=== PATIENT | female | born 1960 | race African-American/Black ===

== ENCOUNTER 2018-05-31 07:59 | Inpatient (IN) ==
[2018-05-31] MEDS ORDERED: D5 LR 1000 ML 1,000 ML IV ONE (08:02)
[2018-05-31] MEDS ORDERED: ANCEF 1 GRAM IV PREMIX* 1 G/50 ML BAG IV ONE (08:03)
[2018-05-31 08:36] VITALS: BMI 49.1
[2018-05-31] MEDS ORDERED: ROBINUL ONE (09:26)
[2018-05-31] MEDS ORDERED: NEOSTIGMINE INJ ONE (09:26)
[2018-05-31] MEDS ORDERED: NS IRRIGATION 3000 ML ONE (09:26)
[2018-05-31] MEDS ORDERED: QUELICIN (OR ANECTINE) ONE (09:26)
[2018-05-31] MEDS ORDERED: NS IRRIGATION 1000 ML ONE (09:26)
[2018-05-31] MEDS ORDERED: ZOFRAN INJ 4 MG VIAL ONE (09:26)
[2018-05-31] MEDS ORDERED: DIPRIVAN VIAL ONE (09:26)
[2018-05-31] MEDS ORDERED: VERSED ONE (09:26)
[2018-05-31] MEDS ORDERED: NORCURON INJ 10 MG VIAL ONE ×2 (09:26→12:24)
[2018-05-31] MEDS ORDERED: XYLOCAINE 2 % (PLAIN) ONE (09:26)
[2018-05-31] MEDS ORDERED: BACTROBAN TOPICAL OINT ONE (09:31)
[2018-05-31] MEDS ORDERED: FENTANYL INJ 250 mcg ONE (09:41)
[2018-05-31] MEDS ORDERED: LR 1000 ML IV 1,000 ML IV ONE (10:02)
[2018-05-31] MEDS ORDERED: FENTANYL INJ 100 mcg ONE ×2 (10:51→11:20)
[2018-05-31] MEDS ORDERED: DILAUDID INJ ONE ×2 (10:51→17:04)
[2018-05-31] MEDS ORDERED: NS 1000 ML 1,000 ML ONE ×2 (11:23→15:55)
[2018-05-31] MEDS ORDERED: NS IRRIGATION 1000 ML 1,000 ML with BACITRACIN VIAL 50,000 UNIT, POLYMYXIN B SULFATE 50... IR NR ×3 (13:00)
[2018-05-31] MEDS ORDERED: NS IRRIGATION 3000 ML 3,000 ML with BACITRACIN VIAL 50,000 UNIT, POLYMYXIN B SULFATE 50... IR NR ×6 (13:00)
[2018-05-31] MEDS ORDERED: PHENERGAN INJ 25 MG IVP PRN (14:04)
[2018-05-31] MEDS ORDERED: ZOFRAN INJ 4 MG VIAL IVP PRN (14:04)
[2018-05-31] MEDS ORDERED: REGLAN INJ 10 MG VIAL IVP PRN (14:04)
[2018-05-31] MEDS ORDERED: BENADRYL INJ 50 MG VIAL IVP PRN (14:04)
[2018-05-31] MEDS ORDERED: DILAUDID INJ IVP PRN (14:04)
[2018-05-31] MEDS ORDERED: MORPHINE SULFATE PCA 30 MG IV PRN (14:23)
--- NOTE | 2018-05-31 14:56 | RAD ---
Examination: Portable right hip, two views History: Postop Comparison reference 04/01/2018 Findings: Arthroplasty components are now present, related anatomically without evidence for displace ment or periprosthetic fracture. The expected postsurgical soft tissue changes are observed. Impression: Interval performance right PRIYANK. Reported By:
[2018-05-31] MEDS: DILAUDID INJ IVP PRN ×2 (17:21→21:27)
--- NOTE | 2018-05-31 18:53 | RAD ---
[facility] CLINICAL HISTORY: 58-year-old female postop right hip arthroplasty. COMPARISON: Radiographs of the right hip this date. FINDINGS: AP view of the pelvis was obtained. Study is limited secondary to patient body habitus and excessive quantum mottle. Right total hip arthroplasty with femoral and acetabular components well-se ated incongruent. No radiographic evidence of immediate postoperative complication. No osseous fractu re or malalignment. IMPRESSION: No immediate postoperative complication radiographically evident. Reported By:
[2018-05-31] MEDS: NORCO 5/325 MG TAB PO PRN (19:46)
[2018-05-31] MEDS: LOVENOX INJ 30 MG SYR SC SCH (21:25)
[2018-05-31] MEDS: LR 1000 ML IV 1,000 ML IV SCH (21:49)
[2018-06-01] MEDS: DILAUDID INJ IVP PRN ×3 (01:34→08:09)
[2018-06-01 04:51] LABS: BASOPHILS # (AUTO) 0.1 X10^3/uL (0.0-0.1); BASOPHILS % (AUTO) 0.5 % (0.2-1.0); EOSINOPHILS % (AUTO) 0.3 % (0.9-2.9); HEMATOCRIT 32.4 % (36.0-47.0); LYMPHOCYTES % (AUTO) 21.4 % (21.0-51.0); MEAN CORPUSCULAR HEMOGLOBIN 28.1 pg (27.0-34.0); MEAN CORPUSCULAR HGB CONC 34.1 g/dL (33.0-35.0); MEAN CORPUSCULAR VOLUME 82.6 fL (80.0-100.0); MONOCYTES # (AUTO) 1.6 x10^3/uL (0.3-0.8); MONOCYTES % (AUTO) 11.2 % (0.0-13.0); NEUTROPHILS # (AUTO) 9.4 x10^3/uL (2.2-4.8); NEUTROPHILS % (AUTO) 66.6 % (42.0-75.0); PLATELET COUNT 200 X10^3/uL (150.0-450.0); RED BLOOD COUNT 3.93 X10^6/uL (3.5-5.4); RED CELL DISTRIBUTION WIDTH 15.3 % (11.6-16.5); WHITE BLOOD COUNT 14.1 X10^3/uL (3.6-10.0)
[2018-06-01 04:57] LABS: BLOOD UREA NITROGEN 10 mg/dL (7-18); CALCIUM 8.3 mg/dL (8.5-10.1); CARBON DIOXIDE 32.6 mmol/L (21-32); CHLORIDE 100 mmol/L (98-107); COR NA(FOR HYPERGLY) 136 mmol/L (136-145); CREATININE 0.74 mg/dL (0.55-1.02); SODIUM 135 mmol/L (136-145); eGFR NON BLACK RACES > 60 (>60)
[2018-06-01] MEDS: LR 1000 ML IV 1,000 ML IV SCH ×3 (07:08→21:44)
[2018-06-01] MEDS: NORCO 5/325 MG TAB PO PRN (07:08)
[2018-06-01] MEDS ORDERED: MAALOX or MYLANTA PO PRN (07:42)
[2018-06-01] MEDS: LOVENOX INJ 30 MG SYR SC SCH ×2 (08:12→20:04)
[2018-06-01] MEDS ORDERED: TYLENOL 325 MG TAB PO PRN (08:36)
[2018-06-01] MEDS ORDERED: DILAUDID INJ IVP PRN (09:57)
[2018-06-01] MEDS ORDERED: PHARMACY CONSULT - DOSE _____ XX SCH (11:00)
[2018-06-01] MEDS ORDERED: DILAUDID PCA 60 MG IVP PRN (11:30)
[2018-06-01] MEDS: PERCOCET TAB 5/325 MG PO PRN ×2 (12:30→20:02)
[2018-06-01] MEDS ORDERED: MELOXICAM 7.5 MG PO SCH (13:00)
[2018-06-01] MEDS ORDERED: VALSARTAN HYDROCHLOROTHIAZIDE PO SCH (13:00)
[2018-06-01] MEDS ORDERED: STERILE WATER IRRIGATION IR ONE (13:18)
[2018-06-01] MEDS: MIRALAX POWDER (1 DOSE 17 G) PO SCH (14:28)
[2018-06-01] MEDS: ASPIRIN EC 81 MG PO SCH (14:29)
[2018-06-01] MEDS: CLARITIN PO SCH (14:29)
[2018-06-01] MEDS: MOBIC TAB 15 MG PO SCH (14:29)
[2018-06-01] MEDS: GLUCOPHAGE XR PO SCH (14:29)
[2018-06-01] MEDS: TENORMIN PO SCH ×2 (14:29→20:04)
[2018-06-01] MEDS: CYMBALTA PO SCH ×2 (14:29→21:44)
[2018-06-01] MEDS: PriLOSEC PO SCH (14:34)
[2018-06-01] MEDS: VICTOZA SC SCH (15:30)
[2018-06-01] MEDS: BENADRYL CAP/TAB 25 MG PO PRN ×2 (18:28→22:37)
[2018-06-01] MEDS ORDERED: COLACE CAP 100 MG PO SCH (21:00)
[2018-06-02] MEDS: BENADRYL CAP/TAB 25 MG PO PRN (04:54)
[2018-06-02 05:12] LABS: BASOPHILS # (AUTO) 0.1 X10^3/uL (0.0-0.1); BASOPHILS % (AUTO) 0.4 % (0.2-1.0); BLOOD UREA NITROGEN 14 mg/dL (7-18); CALCIUM 8.3 mg/dL (8.5-10.1); CARBON DIOXIDE 33.8 mmol/L (21-32); CHLORIDE 98 mmol/L (98-107); COR NA(FOR HYPERGLY) 136 mmol/L (136-145); CREATININE 1.16 mg/dL (0.55-1.02); EOSINOPHILS # (AUTO) 0.1 x10^3/uL (0.0-0.2); EOSINOPHILS % (AUTO) 0.7 % (0.9-2.9); HEMATOCRIT 29.7 % (36.0-47.0); LYMPHOCYTES # (AUTO) 2.9 X10^3/uL (1.3-2.9); LYMPHOCYTES % (AUTO) 17.6 % (21.0-51.0); MEAN CORPUSCULAR HEMOGLOBIN 27.8 pg (27.0-34.0); MEAN CORPUSCULAR HGB CONC 33.7 g/dL (33.0-35.0); MEAN CORPUSCULAR VOLUME 82.5 fL (80.0-100.0); MEAN PLATELET VOLUME 10.1 fL (7.4-11.0); MONOCYTES # (AUTO) 1.9 x10^3/uL (0.3-0.8); MONOCYTES % (AUTO) 11.9 % (0.0-13.0); NEUTROPHILS # (AUTO) 11.2 x10^3/uL (2.2-4.8); NEUTROPHILS % (AUTO) 69.4 % (42.0-75.0); PLATELET COUNT 192 X10^3/uL (150.0-450.0); RED CELL DISTRIBUTION WIDTH 15.5 % (11.6-16.5); SODIUM 135 mmol/L (136-145); WHITE BLOOD COUNT 16.2 X10^3/uL (3.6-10.0); eGFR NON BLACK RACES 51 (>60)
[2018-06-02] MEDS ORDERED: POTASSIUM CHL 60 MEQ/NS 0.45% 500 ML IV PRN (05:35)
[2018-06-02] MEDS ORDERED: K-RIDER 10 MEQ/NS 100 ML 10 MEQ/100 ML BAG IV PRN (05:35)
[2018-06-02] MEDS ORDERED: POTASSIUM CHL 40 MEQ/NS 0.45% 500 ML IV PRN (05:35)
[2018-06-02] MEDS ORDERED: POTASSIUM CHLORIDE LIQ 20 MEQ UDC PO PRN (05:35)
[2018-06-02] MEDS ORDERED: K-LYTE EFFERVESCENT PO PRN (05:35)
[2018-06-02] MEDS ORDERED: MAGNESIUM SULFATE 1 GRAM/100 mL PREMIX 1 GM/100 ML BAG IV PRN (06:15)
[2018-06-02] MEDS: CLARITIN PO SCH (08:46)
[2018-06-02] MEDS: LOVENOX INJ 30 MG SYR SC SCH (08:46)
[2018-06-02] MEDS: GLUCOPHAGE XR PO SCH (08:47)
[2018-06-02] MEDS: MOBIC TAB 15 MG PO SCH (08:47)
[2018-06-02] MEDS: ASPIRIN EC 81 MG PO SCH (08:47)
[2018-06-02] MEDS: TENORMIN PO SCH (08:47)
[2018-06-02] MEDS: PriLOSEC PO SCH (08:47)
[2018-06-02] MEDS ORDERED: MILK OF MAGNESIA PO SCH (09:00)
[2018-06-02] MEDS ORDERED: HYZAAR 50/12.5 MG PO SCH (09:00)
[2018-06-02] MEDS: CYMBALTA PO SCH (09:04)
[2018-06-02] MEDS: VICTOZA SC SCH (09:04)
[2018-06-02] MEDS: MIRALAX POWDER (1 DOSE 17 G) PO SCH (09:05)
[2018-06-02] MEDS ORDERED: ANCEF VIAL 1 GRAM 1 G in NS 100 ML IV + SPIKE MINIBAG* 100 ML IV SCH (10:22)
--- NOTE | 2018-06-02 10:32 | PCM.PROG ---
Progress Note - Progress Note for Day of Date of Exam: 06/01/18 - Subjective Subjective: IS DAY 1 STATUS POST RIGHT TOTAL HIP REPLACEMENT. TODAY, SHE IS ALERT AND ORIENTED, LYING IN BED ON MORNING ROUNDS. SHE COMPLAINS OF SEVERE PAIN THAT IS NOT BEING RELIEVED BY HER CURRENT PAIN MEDICATIONS. ON EXAMINATION, HEART IS REGULAR IN RATE AND RHYTHM. BILATERAL LUNGS ARE CLEAR TO AUSCULTATION. ABDOMEN IS ROUND, SOFT, AND NON-TENDER WITH NORMAL BOWEL SOUNDS NOTED IN ALL QUADRANTS. THERE IS A SURGICAL DRESSING NOTED TO THE RIGHT HIP. DRESSING IS DRY AND INTACT WITH NO SIGNS OR SYMPTOMS OF INFECTION NOTED TO SITE. A HEMOVAC IS NOTED TO DRAINAGE. HER VITALS THIS MORNING ARE 99.0-97-18-100 %-109/64. LABS WERE OBTAINED. ABNORMAL LAB VALUES INCLUDE THE FOLLOWING: WBC 14.1, HGB 11.0, HCT 32.4, SODIUM 135, CARBON DIOXIDE 32.6, GLUCOSE 161, CALCIUM 8.3. PHYSICAL THERAPY REPORTS THAT SHE REQUIRES EXTENSIVE ASSISTANCE WITH ALL FUNCTIONAL MOBILITY TASKS AT THIS TIME. SHE WILL REQUIRE THE USE OF A BEDSIDE COMMODE AND WALKER AT HOME. TODAY, WE WILL START A DILAUDID COIL ASSEMBLER AND CONTINUE WITH DVT PROPHYLAXIS. OTHERWISE, WE WILL FOLLOW UP WITH AM LABS AND CONTINUE TO MONITOR. - Past Medical Family Social History Past Med/Fam/Surg Hx: No changes since H&P Allergies: Allergies pentazocine Allergy (Verified 05/31/18 13:09) - Review of Systems ROS: No change since H&P - Vital Signs and I&O's Vital Signs: Temperature 99.3 F Pulse Rate [Right Radial] 98 Pulse Rate 78 Respiratory Rate 20 Blood Pressure [Right Arm] 116/56 Blood Pressure 181/84 O2 Sat by Pulse Oximetry 98 Intake and Output: Intake & Output 05/30/18 05/31/18 06/01/18 06/02/18 11:59 11:59 11:59 11:59 Intake Total 7000 / 7000 07009 / 42122 3340 / 3340 Output Total 18891 / 52316 1210 / 1210 Balance 7000 / 7000 -3260 / -3260 2130 / 2130 - Physical Exam Oriented: Normal Eyes: Normal Ear: Normal Nose: Normal Throat: Normal Respiratory: Normal Cardiovascular: Normal : Normal Auscultation: Bowel Sounds: Normal Palpation: Normal Tenderness: Normal Skin: Wound (SURGICAL WOUND RIGHT HIP ) Musculoskeletal: Right, Hip, Tender Psychiatric: Normal Mood Description: Calm Affect: Normal Speech Pattern: Clear, Appropriate - Laboratory and Diagnostics Result Diagrams: 06/02/18 04:20 06/02/18 04:20 Labs: Laboratory WBC 16.2 X10^3/uL (3.6-10.0) H 06/02/18 04:20 RBC 3.60 X10^6/uL (3.5-5.4) 06/02/18 04:20 Hgb 10.0 g/dL (12.0-16.0) L 06/02/18 04:20 Hct 29.7 % (36.0-47.0) L 06/02/18 04:20 MCV 82.5 fL (80.0-100.0) 06/02/18 04:20 MCH 27.8 pg (27.0-34.0) 06/02/18 04:20 MCHC 33.7 g/dL (33.0-35.0) 06/02/18 04:20 RDW 15.5 % (11.6-16.5) 06/02/18 04:20 Plt Count 192 X10^3/uL (150.0-450.0) 06/02/18 04:20 MPV 10.1 fL (7.4-11.0) 06/02/18 04:20 Neut % (Auto) 69.4 % (42.0-75.0) 06/02/18 04:20 Lymph % (Auto) 17.6 % (21.0-51.0) L 06/02/18 04:20 [place] % (Auto) 11.9 % (0.0-13.0) 06/02/18 04:20 Eos % (Auto) 0.7 % (0.9-2.9) L 06/02/18 04:20 Baso % (Auto) 0.4 % (0.2-1.0) 06/02/18 04:20 Neut # (Auto) 11.2 x10^3/uL (2.2-4.8) H 06/02/18 04:20 Lymph # (Auto) 2.9 X10^3/uL (1.3-2.9) 06/02/18 04:20 [place] # (Auto) 1.9 x10^3/uL (0.3-0.8) H 06/02/18 04:20 Eos # (Auto) 0.1 x10^3/uL (0.0-0.2) 06/02/18 04:20 Baso # (Auto) 0.1 X10^3/uL (0.0-0.1) 06/02/18 04:20 Absolute Nucleated RBC 0.0 /100WBC 06/02/18 04:20 Sodium 135 mmol/L (136-145) L 06/02/18 04:20 Corrected Sodium 136 mmol/L (136-145) 06/02/18 04:20 Potassium 3.4 mmol/L (3.5-5.1) L 06/02/18 04:20 Chloride 98 mmol/L (98-107) 06/02/18 04:20 Carbon Dioxide 33.8 mmol/L (21-32) H 06/02/18 04:20 BUN 14 mg/dL (7-18) 06/02/18 04:20 Creatinine 1.16 mg/dL (0.55-1.02) H 06/02/18 04:20 Est GFR (MDRD) Af Amer > 60 (>60) 06/02/18 04:20 Est GFR (MDRD) Non-Af 51 (>60) L 06/02/18 04:20 Glucose 150 mg/dL (65-99) H 06/02/18 04:20 POC Glucose (mg/dL) 171 mg/dL (65-99) H 06/01/18 19:18 Calcium 8.3 mg/dL (8.5-10.1) L 06/02/18 04:20 Magnesium 1.6 mg/dL (1.7-2.9) L 06/02/18 04:20 Blood Type A POSITIVE 05/27/18 13:55 Antibody Screen Negative 05/27/18 13:55 Crossmatch See Detail 05/31/18 12:01 - Plan (1) Status post right hip replacement Status: Acute Plan: PAIN CONTROL, DVT PROPHYLAXIS, PHYSICAL THERAPY, CONTINUE TO MONITOR.
[2018-06-02] MEDS ORDERED: NEURONTIN CAP 100 MG PO SCH (11:00)
--- NOTE | 2018-06-02 11:30 | PCM.PROG ---
Progress Note - Progress Note for Day of Date of Exam: 06/02/18 - Subjective Subjective: pod 2 . afebrile. stable vitals. sitting in the chair. pain well controlled. dressing changed. drain removed. bui dced. incision clean and dry. on lovenox. working eith PT . making progress. no complications or DVT. post op xr well aligned and oriented hip THR witout any complications. - Past Medical Family Social History Past Med/Fam/Surg Hx: No changes since H&P Allergies: Allergies pentazocine Allergy (Verified 05/31/18 13:09) - Review of Systems ROS: No change since H&P - Vital Signs and I&O's Vital Signs: Temperature 98.5 F Pulse Rate [Right Radial] 99 Pulse Rate 78 Respiratory Rate 20 Blood Pressure [Right Arm] 125/61 Blood Pressure 181/84 O2 Sat by Pulse Oximetry 97 Intake and Output: Intake & Output 05/30/18 05/31/18 06/01/18 06/02/18 23:59 23:59 23:59 23:59 Intake Total 56907 / 95220 3120 / 3120 700 / 700 Output Total 15423 / 54122 1550 / 1550 60 / 60 Balance 3660 / 3660 1570 / 1570 640 / 640 - Physical Exam Oriented: Normal Eyes: Normal Ear: Normal Nose: Normal Throat: Normal Respiratory: Normal Cardiovascular: Normal : Normal Auscultation: Bowel Sounds: Normal Tenderness: Normal Skin: Wound (SURGICAL WOUND RIGHT HIP ) Musculoskeletal: Right, Hip, Tender Psychiatric: Normal Mood Description: Calm Affect: Normal Speech Pattern: Clear, Appropriate - Laboratory and Diagnostics Result Diagrams: 06/02/18 04:20 06/02/18 04:20 Labs: Laboratory WBC 16.2 X10^3/uL (3.6-10.0) H 06/02/18 04:20 RBC 3.60 X10^6/uL (3.5-5.4) 06/02/18 04:20 Hgb 10.0 g/dL (12.0-16.0) L 06/02/18 04:20 Hct 29.7 % (36.0-47.0) L 06/02/18 04:20 MCV 82.5 fL (80.0-100.0) 06/02/18 04:20 MCH 27.8 pg (27.0-34.0) 06/02/18 04:20 MCHC 33.7 g/dL (33.0-35.0) 06/02/18 04:20 RDW 15.5 % (11.6-16.5) 06/02/18 04:20 Plt Count 192 X10^3/uL (150.0-450.0) 06/02/18 04:20 MPV 10.1 fL (7.4-11.0) 06/02/18 04:20 Neut % (Auto) 69.4 % (42.0-75.0) 06/02/18 04:20 Lymph % (Auto) 17.6 % (21.0-51.0) L 06/02/18 04:20 [place] % (Auto) 11.9 % (0.0-13.0) 06/02/18 04:20 Eos % (Auto) 0.7 % (0.9-2.9) L 06/02/18 04:20 Baso % (Auto) 0.4 % (0.2-1.0) 06/02/18 04:20 Neut # (Auto) 11.2 x10^3/uL (2.2-4.8) H 06/02/18 04:20 Lymph # (Auto) 2.9 X10^3/uL (1.3-2.9) 06/02/18 04:20 [place] # (Auto) 1.9 x10^3/uL (0.3-0.8) H 06/02/18 04:20 Eos # (Auto) 0.1 x10^3/uL (0.0-0.2) 06/02/18 04:20 Baso # (Auto) 0.1 X10^3/uL (0.0-0.1) 06/02/18 04:20 Absolute Nucleated RBC 0.0 /100WBC 06/02/18 04:20 Sodium 135 mmol/L (136-145) L 06/02/18 04:20 Corrected Sodium 136 mmol/L (136-145) 06/02/18 04:20 Potassium 3.4 mmol/L (3.5-5.1) L 06/02/18 04:20 Chloride 98 mmol/L (98-107) 06/02/18 04:20 Carbon Dioxide 33.8 mmol/L (21-32) H 06/02/18 04:20 BUN 14 mg/dL (7-18) 06/02/18 04:20 Creatinine 1.16 mg/dL (0.55-1.02) H 06/02/18 04:20 Est GFR (MDRD) Af Amer > 60 (>60) 06/02/18 04:20 Est GFR (MDRD) Non-Af 51 (>60) L 06/02/18 04:20 Glucose 150 mg/dL (65-99) H 06/02/18 04:20 POC Glucose (mg/dL) 155 mg/dL (65-99) H 06/02/18 05:27 Calcium 8.3 mg/dL (8.5-10.1) L 06/02/18 04:20 Magnesium 1.6 mg/dL (1.7-2.9) L 06/02/18 04:20 Blood Type A POSITIVE 05/27/18 13:55 Antibody Screen Negative 05/27/18 13:55 Crossmatch See Detail 05/31/18 12:01 - Plan (1) Status post right hip replacement Status: Acute Plan: 1. plan for DC- case management. 2. follow up in a wekk. 3. keep dressing on for a week ,till follow up in office. 4. lovenox 30 bd till further advise. 5. percocoet as advised. 6. gabapentin 200 q8 till further advise. 7. ibuprofen 800 q 8 till further advise. 8.walk with the help of walker as much as possible. 9. posterior hip precatuons. 10. full weight bearing.
[2018-06-02] MEDS: PERCOCET TAB 5/325 MG PO PRN (12:29)
[2018-06-02] MEDS ORDERED: MOTRIN TAB 800 MG PO ONE (14:02)
[2018-06-02 15:21] VITALS: BP 153/84
--- NOTE | 2018-06-02 15:25 | OR.GENERIC ---
Post-Op Note Generic - Post-Op Note Operative Report: PREOPERATIVE DIAGNOSIS: RIGHT hip degenerative arthritis, severe POSTOPERATIVE DIAGNOSIS: RIGHT hip degenerative arthritis, severe PROCEDURE PERFORMED: RIGHT total hip arthroplasty DATE OF SURGERY-05/31/18 ANESTHESIA: Gen. anesthesia BLOOD LOSS: 800 cc. The patient was positioned with the RIGHT hip exposed on the pegboard. IMPLANT SPECIFICATION: Dexter Accloade femur 2, 127 58 mm cluster acetabular shell cancellous screw 20 mm 1 Neutral liner 36 mm 36 mm femoral head,, +10 mm GROSS INTRAOPERATIVE FINDINGS: Severe degenerative changes within the femoral head as well as the acetabulum. HISTORY: This is a 58-year-old female with a history of RIGHT hip degenerative dysplastic osteoarthritis. Patient is morbidly obese. Patient has tried and failed conservative management. Comorbidities are positive for diabetes mellitus hypertension.she has tried and failed conservative management. Because of the increased amount of pain as well as severe effect on the activities of daily living and uncontrollable pain with narcotic medication, the patient has elected to undergo the above-named procedure. All risks as well complications were discussed with the patient including but not limited to infection, scar, dislocation, need for further surgery, risk of anesthesia, deep vein thrombosis, fracture, loosening, sciatic nerve injury, neurovascular damage, bleeding, stiffness, persistent pain, limb length discrepancy and implant failure. The patient understood all these risks and was willing to continue further on with the procedure. PROCEDURE:. Patient was brought to the operating room. Spinal epidural was done.gen. anesthesia was induced. patient got appropriate antibiotic. Lazar catheter was inserted. patient was positioned with peg board in LEFT lateral position. An axillary roll was placed. All the bony prominences were well padded. At this time, the RIGHT hip and RIGHT lower extremity was then prepped and draped in the usual sterile fashion for this procedure. a posterior approach was then performed. A curvilinear incision placed over the posterior half of trochanter was placed. Dissection carried down through the subcutaneous tissue to expose the TFL and the distal part of the incision. Incision made in the TFL and The G max fibers split along. Charnley retractor applied. Fat pad was elevated with the Ray-Santa exposing the short external rotators. Inferior and superior sutures with heavy sutures placed in the rotators and the capsule. The short rotators with capsule were taken down with cautery to expose the hip. The hip was dislocated with flexion adduction and internal rotation.as expected severe osteoarthritic changes were seen both on the acetabular as well as femoral side. An neck osteotomy was completed with an oscillating saw. The femoral head was then removed. The acetabulum was exposed after an anterior capsulotomy was done. Retractors were placed anteriorly posteriorly and inferiorly. The floor was identifiable about the deficit. A long-handle knife was used to cut through the remainder of the capsule and remove the labrum around the rim of the acetabulum. With better exposure of the acetabulum, we started reaming the acetabulum. We started with a size #44 and progressively reamed to a size #58. At the size #58 mm reamer, we obtained excellent bony bleeding with good remainder of bone stalk both anteriorly and posteriorly as well as superiorly within the acetabulum. A size 58 mm cup was then implanted with approximately 45 degrees of abduction and 10 to 15 degrees of anteversion dialed in. 2 screws were the placed. At this time , a plastic liner was then inserted for protection. The leg was flexed and abducted and rotated 90 to prepare the femur. A Blanco retractor was used to retract the tensor fascia marylu and femoral elevator was used to elevate the femur for better exposure and at this time, we began working on the femur. A rongeur was used to lateralize over the greater trochanter. A Box osteotome was used to remove the cancellous portion of the femoral neck. A Charnley awl was then used to cannulate through the proximal femoral canal. A power reamer was then used to ream the lateral aspect of the greater trochanter in order to provide maximal lateralization and prevent varus implantation of our stem. At this time, we began broaching. We started with a size #0 and progressively worked up to a size #2 mm broach. Once the 3 mm broach was inserted in place, it was seated approximately 1 mm above the calcar. A calcar reamer was then placed and the calcar was reamed smoothly. A standard neck as well as a 36 mm plastic head was then placed and a trial reduction was then performed. Once this was performed, the hip was taken to range of motion with external rotation , longitudinal traction as well as flexion and revealed good stability with no impingement or dislocation. At this time, we removed 2 mm broach and proceeded with implanting our polyethylene liner within the acetabulum. This was impacted and placed and checked to assure that it was well seated with no loosening. We copiously irrigated within the canal and then suctioned it dry. At this time, a 2 mm porous proximal collared stem, a femoral component was then impacted in place. The 28 mm +10 neck length cobalt-chrome femoral head was then impacted in place and the Hassan taper assured that this was well fixed . Next, the hip was then reduced within the acetabulum and again we checked range of motion as well as ligamentous stability with gentle traction, external rotation, as well as hip flexion. We were satisfied with components as well as the alignment of the components. Copious irrigation was then used to irrigate the wound. #1 Ethibond was then used to approximate the hip capsule. #1 vicryl in interrupted fashion was used to approximate the vastus lateralis as well as the gluteus medius attachment over the partial gluteus medius attachment which was resected off the greater trochanter. Next, a #1 vicryl was then used to approximate the tensor fascia marylu with [id number] closure. A tight closure was performed. Since the patient did have a lot of subcutaneous fat, multiple #2-0 Vicryl sutures were then used to approximate the bed space and then #2-0 Vicryl for the subcutaneous skin. [place] were then used for skin closure. The patients hip was then cleansed. Sterile dressings consisting of were then placed. After the dressing was applied, the patient was extubated safely and transferred to recovery in stable condition. Prognosis is good.
--- NOTE | 2018-07-13 20:16 | DR.CARTERD ---
- Discharge Summary for: Discharge Summary for Date of:: 06/02/18 - Admission Date Date of Admission: 05/31/18 - Admission Diagnoses Admission Diagnosis: (1) Status post right hip replacement (2) Right hip OA (3) Right hip pain - Discharge Date Discharge Date: 06/02/18 - Discharge Diagnoses Discharge Diagnosis: (1) Status post right hip replacement (2) Right hip OA (3) Right hip pain - Hospital Course Hospital Course: DAY ONE, MS. RAPP IS A 58 YEAR OLD FEMALE WHO WAS ADMITTED BY DR. CORNELL FOR A RIGHT HIP REPLACEMENT. PATIENT COMPLAINED OF RIGHT HIP PAIN. PATIENT HAD RIGHT HIP OSTEOARTHRITIS. SHE HAD BEEN DEALING WITH PAIN FOR MANY YEARS NOW. SHE HAD TRIED AND FAILED CONSERVATIVE MANAGEMENT. SHE HAD TRIED PHYSICAL THERAPY , INJECTIONS, WEIGHT BEARING RESTRICTIONS, AND BRACES WITHOUT MUCH BENEFIT. PATIENT HAD AN MRI WHICH SHOWED ADVANCED OSTEOARTHRITIS OF THE HIP. TREATMENT OPTIONS WERE DISCUSSED AND SHE DECIDED TO PROCEED WITH A TOTAL HIP ARTHROPLASTY. PATIENT TOLERATED PROCEDURE WELL. WE WERE CONSULTED FOR MEDICAL MANAGEMENT. DAY TWO, MS. RAPP WAS DAY 1 STATUS POST RIGHT TOTAL HIP REPLACEMENT. SHE WAS ALERT AND ORIENTED, LYING IN BED ON MORNING ROUNDS. SHE COMPLAINED OF SEVERE PAIN THAT WAS NOT BEING RELIEVED BY HER PAIN MEDICATIONS. ON EXAMINATION, HEART WAS REGULAR IN RATE AND RHYTHM. BILATERAL LUNGS WERE CLEAR TO AUSCULTATION. ABDOMEN WAS ROUND, SOFT, AND NON-TENDER WITH NORMAL BOWEL SOUNDS NOTED IN ALL QUADRANTS. THERE WAS A SURGICAL DRESSING NOTED TO THE RIGHT HIP. DRESSING WAS DRY AND INTACT WITH NO SIGNS OR SYMPTOMS OF INFECTION NOTED TO SITE. A HEMOVAC WAS NOTED TO DRAINAGE. HER VITALS WERE 99.0-97-18-100%-109/64. LABS WERE OBTAINED. ABNORMAL LAB VALUES INCLUDED THE FOLLOWING: WBC 14.1, HGB 11.0, HCT 32.4, SODIUM 135, CARBON DIOXIDE 32.6, GLUCOSE 161, CALCIUM 8.3. PHYSICAL THERAPY REPORTED THAT SHE REQUIRED EXTENSIVE ASSISTANCE WITH ALL FUNCTIONAL MOBILITY TASKS. SHE WOULD REQUIRE THE USE OF A BEDSIDE COMMODE AND WALKER AT HOME AND WE CONTACTED CASE MANAGEMENT FOR SETUP. WE STARTED A DILAUDID FLOUR MIXER AND CONTINUED WITH DVT PROPHYLAXIS. WE CONTINUED TO MONITOR. DAY THREE, PATIENT REPORTED HER PAIN WAS MUCH BETTER. SHE REPORTED PAIN WAS CONTROLLED WITH ORAL PAIN MEDICATION. DRESSING TO RIGHT HIP WAS DRY AND INTACT. DR. CORNELL RELEASED PATIENT FOR DISCHARGE. VITAL SIGNS STABLE. LABS WNL. WE PLANNED FOR DISCHARGE WITH HOME HEALTH. INSTRUCTIONS FOR MEDICATIONS AND FOLLOW UP WERE DISCUSSED WITH PATIENT AND FAMILY, BOTH VOICED UNDERSTANDING. PATIENT DISCHARGED HOME IN STABLE CONDITION WITH FAMILY. - Discharge Medications Discharge Medications: Home Medication List aspirin 81 mg PO QDAY 05/31/18 [History] atenolol 25 mg PO BID 05/31/18 [History] duloxetine [Cymbalta] 60 mg PO BID 05/31/18 [History] hydrocodone-acetaminophen [[place]ilon] 1 tab PO Q4-6H PRN 05/31/18 [History] hydromorphone 4 mg PO DAILY PRN 05/31/18 [History] liraglutide [Victoza 2-Lopez] 1.2 units SUBCUT DAILY 05/31/18 [History] loratadine 10 mg PO QDAY 05/31/18 [History] meloxicam [Mobic] 7.5 mg PO QDAY 05/31/18 [History] metformin 1,000 mg PO DAILY 05/31/18 [History] omeprazole 20 mg PO QDAY 05/31/18 [History] polyethylene glycol 3350 [Miralax] 17 g PO QDAY 05/31/18 [History] valsartan-hydrochlorothiazide [Diovan HCT] 1 tab PO DAILY 05/31/18 [History] cephalexin [Keflex] 500 mg PO TID #30 cap 06/02/18 [Rx] ibuprofen [IBU] 800 mg PO TID PRN #30 tab 06/02/18 [Rx] oxycodone-acetaminophen [Percocet] 1 tab PO Q6H PRN #30 tab 06/02/18 [Rx] Prescriptions: cephalexin [Keflex] JAIME CORNELL ibuprofen [IBU] JAIME CORNELL oxycodone-acetaminophen [Percocet] JAIME CORNELL - Discharge Disposition Discharge Disposition: PATIENT IS TO FOLLOW UP WITH DR. CORNELL IN ONE WEEK AND WITH SABI LEE MD IN ONE WEEK.
== END 2018-06-02 14:45 | disposition home health service (06) | DRG 470 ==
LOC: MED/SURG 07:59
PROVIDERS: ADMIT Orthopaedic Surgery; ATTEND Internal Medicine
DX: I10 Essential (primary) hypertension; K21.9 Gastro-esophageal reflux disease without esophagitis; E11.65 Type 2 diabetes mellitus with hyperglycemia; M25.551 Pain in right hip; M16.11 Unilateral primary osteoarthritis, right hip; R26.89 Other abnormalities of gait and mobility
CPT/HCPCS: 36415; 72170; 73501; 80048; 83735; 85025; 86850; 86900; 86901; 86922; 87040; 94762; 97110; 97112; 97116; 97163; 97167; 97530; 97535; A4216; A4217; A4222; P9016; J0330; J0690; J1170; J1650; J2250; J2271; J2405; J2704; J2710; J3010; J3475; J3490; J7030; J7120; J7121; J8499